=== PATIENT | female | born 1995 | race African-American/Black ===

== ENCOUNTER 2018-06-16 14:45 | Emergency (ER) | payer MEDICAID ==
[~2018-06-16] VITALS: Ht 165.1 cm; Wt 64.8 kg
[2018-06-16 15:14] VITALS: BP 131/80
== END 2018-06-16 16:30 | disposition left against medical advice (07) ==
LOC: ER 14:45
DX: R10.9 Unspecified abdominal pain (principal); R11.2 Nausea with vomiting, unspecified
CPT/HCPCS: 99281

== ENCOUNTER 2019-10-10 12:30 | Emergency (ER) | payer MEDICAID ==
[~2019-10-10] VITALS: Ht 165.1 cm; Wt 66.0 kg
[2019-10-10 12:32] VITALS: BP 114/84
== END 2019-10-10 15:43 | disposition left against medical advice (07) ==
LOC: ER 13:09
DX: Z53.21 Procedure and treatment not carried out due to patient leaving prior to being seen by health care provider (principal)